=== PATIENT | male | born 1960 ===

== ENCOUNTER 2019-01-20 16:30 | Emergency (ER) | payer SELFPAY ==
[2019-01-20] MEDS ORDERED: KETOROLAC TROMETHAMINE 60 MG/2 ML VIAL IM ONE (17:27)
--- NOTE | 2019-02-11 13:39 | Diagnostic Imaging Report ---
DAVY CASTELLANO [facility] [address] [facility].[address] [id number] Report Submission Date: Jan 20, 2019 5:57:22 PM CDT Patient Study Name: SEAN ORTIZ Date: Jan 20, 2019 5:26:12 PM CDT Modality Type: DX Gender: M Description: SHOULDER 2 VIEWS OR MORE : 60 Institution: [facility] Physician: ADVY CASTELLANO Left shoulder, 3 views HISTORY Shoulder pain FINDINGS The osseous, joint and soft tissue structures are normal. IMPRESSION Normal. Electronically signed on Jan 20, 2019 5:57:22 PM CDT by: Neville KAUR
== END 2019-01-20 18:25 ==
LOC: ED 16:30
DX: S46.002A Unspecified injury of muscle(s) and tendon(s) of the rotator cuff of left shoulder, initial encounter (principal); X58.XXXA Exposure to other specified factors, initial encounter
CPT/HCPCS: 73030; 96372; 99283; 99284; J1885